=== PATIENT | female | born 1960 | race Caucasian/White ===

== ENCOUNTER → 2016-11-21 | Outpatient (CLI) | payer BC ==
--- NOTE | 2016-11-21 10:53 | REPMRS ---
Patient History The patient states she had a clinical breast exam in 10/2016. Patient is postmenopausal. Family history of breast cancer in mother at age 50 or over, ovarian cancer in maternal aunt at age 50 or over, and breast cancer in maternal grandmother at age 50 or over. Benign excisional biopsy of the left breast, 1997. Digital Woman Screen Mammo: November 21, 2016 - Exam #: [id number] Bilateral CC and MLO view(s) were taken. Technologist: Yoly Mario, Technologist Prior study comparison: November 19, 2015, digital woman screen mammo performed at [facility]. October 11, 2014, digital woman screen mammo performed at [facility]. August 12, 2013, digital woman screen mammo performed at [facility]. FINDINGS: There are scattered fibroglandular densities. There has been no change in the appearance of the mammogram from the prior studies. There is a mild amount of scattered fibroglandular density which is fairly symmetric. There is no interval development of dominant mass, architectural distortion, or clustered microcalcification suggestive of malignancy. ASSESSMENT: BI-RADS/ACR category 1 mammogram. Negative. Recommendation Routine screening mammogram in 1 year (for women over age 40). This mammogram was interpreted with the aid of an FDA-approved computer-aided dectection system. Electronically Signed By: Jorje Robledo MD 11/21/16 1171
== END ==
LOC: M WHC 09:55
PROVIDERS: ATTEND Nurse Practitioner Family
DX: Z12.31 Encounter for screening mammogram for malignant neoplasm of breast (principal); Z80.3 Family history of malignant neoplasm of breast; Z80.41 Family history of malignant neoplasm of ovary

== ENCOUNTER → 2017-01-22 | Outpatient (CLI) | payer BC ==
[2017-01-22 19:32] LABS: ALBUMIN 3.8 GM/DL (3.2-5.2); ALBUMIN/GLOBULIN RATIO 1.27 (1.00-1.93); ALKALINE PHOSPHATASE 82 U/L (45-117); ALT/SGPT 47 U/L (12-78); ANION GAP 1 MEQ/L (8-16); AST/SGOT 28 U/L (15-37); BILIRUBIN,TOTAL 0.4 MG/DL (0.2-1.0); BLOOD UREA NITROGEN 14 MG/DL (7-18); CALCIUM LEVEL 8.9 MG/DL (8.5-10.1); CARBON DIOXIDE LEVEL 34 MEQ/L (21-32); CHLORIDE LEVEL 107 MEQ/L (98-107); CHOLESTEROL LEVEL 233 MG/DL (<200); CREATININE FOR GFR 0.89 MG/DL (0.55-1.02); GLOMERULAR FILTRATION RATE > 60.0 (>51); GLUCOSE, FASTING 89 MG/DL (70-105); POTASSIUM SERUM 4.5 MEQ/L (3.5-5.1); SODIUM LEVEL 142 MEQ/L (136-145); TOTAL PROTEIN 6.8 GM/DL (6.4-8.2); TRIGLYCERIDES LEVEL 162 MG/DL (<150)
== END ==
LOC: M WUC 11:13
PROVIDERS: ATTEND Nurse Practitioner Family
DX: E78.2 Mixed hyperlipidemia (principal); E03.9 Hypothyroidism, unspecified; E55.9 Vitamin D deficiency, unspecified

== ENCOUNTER → 2017-07-08 | Outpatient (REF) | payer BC ==
[2017-07-08 19:25] LABS: FREE T4 0.9 NG/DL (0.76-1.46)
== END ==
LOC: M SFHCCLAY 10:24
PROVIDERS: ATTEND Nurse Practitioner Family
DX: E03.9 Hypothyroidism, unspecified (principal)

== ENCOUNTER → 2017-07-16 | Outpatient (REF) | payer BC ==
[2017-07-16 15:15] LABS: ALBUMIN 3.4 GM/DL (3.2-5.2); ALKALINE PHOSPHATASE 72 U/L (45-117); ALT/SGPT 43 U/L (12-78); ANION GAP 7 MEQ/L (8-16); AST/SGOT 28 U/L (15-37); BILIRUBIN,TOTAL 0.4 MG/DL (0.2-1.0); BLOOD UREA NITROGEN 17 MG/DL (7-18); CALCIUM LEVEL 9.1 MG/DL (8.5-10.1); CARBON DIOXIDE LEVEL 31 MEQ/L (21-32); CHLORIDE LEVEL 108 MEQ/L (98-107); CREATININE FOR GFR 0.73 MG/DL (0.55-1.02); GLOMERULAR FILTRATION RATE > 60.0 (>51); GLUCOSE, FASTING 79 MG/DL (70-105); POTASSIUM SERUM 4.6 MEQ/L (3.5-5.1); SODIUM LEVEL 146 MEQ/L (136-145); TOTAL PROTEIN 6.5 GM/DL (6.4-8.2)
[2017-07-16 15:21] LABS: FOLATE > 24.0 NG/ML; VITAMIN B12 LEVEL 441 PG/ML
[2017-07-16 16:44] LABS: BASO % 0.4 % (0.0-1.0); EOS # 0.3 K/mm3 (0.0-0.50); EOS % 4.7 % (0.0-3.0); LARGE UNSTAINED CELL # 0.2 K/mm3 (0.0-0.4); LARGE UNSTAINED CELL % 2.6 % (0.0-4.0); LYMPH # 2.1 K/mm3 (1.5-4.5); LYMPH % 35.7 % (24.0-44.0); MEAN CORPUSCULAR HEMOGLOBIN 31.5 pg (27.0-33.0); MEAN CORPUSCULAR HGB CONC 33.7 g/dl (32.0-36.5); MEAN CORPUSCULAR VOLUME 93.6 fl (80.0-96.0); MONO # 0.3 K/mm3 (0.0-0.8); MONO % 5.8 % (0.0-5.0); NEUTROPHILS % 50.7 % (36.0-66.0); PLATELET COUNT, AUTOMATED 247 k/mm3 (150-450); RED CELL DISTRIBUTION WIDTH 12.6 % (11.5-14.5); WHITE BLOOD COUNT 5.9 K/mm3 (4.0-10.0)
== END ==
LOC: M SFHCPLAZ 11:38
PROVIDERS: ATTEND Nurse Practitioner Family
DX: R41.3 Other amnesia (principal)

== ENCOUNTER → 2017-07-31 | Outpatient (REF) | payer BC ==
[2017-07-31 14:04] LABS: BASO # 0.1 10^3/uL (0.0-0.2); BASO % 0.7 % (0.0-1.0); EOS # 0.3 10^3/uL (0.0-0.50); EOS % 4.4 % (0.0-3.0); IMMATURE GRANULOCYTE % 0.1 % (0-0); LYMPH # 2.7 10^3/uL (1.5-4.5); MEAN CORPUSCULAR HEMOGLOBIN 31.4 pg (27.0-33.0); MEAN CORPUSCULAR HGB CONC 33.3 g/dl (32.0-36.5); MEAN CORPUSCULAR VOLUME 94.3 fl (80.0-96.0); MONO # 0.5 10^3/uL (0.0-0.8); MONO % 7.8 % (0.0-5.0); NEUTROPHILS # 3.3 10^3/uL (1.8-7.7); PLATELET COUNT, AUTOMATED 249 10^3/uL (150-450); RED CELL DISTRIBUTION WIDTH 12.8 % (11.5-14.5); WHITE BLOOD COUNT 6.9 10^3/uL (4.0-10.0)
[2017-07-31 14:26] LABS: VITAMIN B12 LEVEL 758 PG/ML (247-911)
[2017-07-31 14:27] LABS: FOLATE > 24.0 NG/ML (>5.4)
[2017-07-31 14:43] LABS: ALBUMIN 3.7 GM/DL (3.2-5.2); ALBUMIN/GLOBULIN RATIO 1.23 (1.00-1.93); ALKALINE PHOSPHATASE 73 U/L (45-117); ALT/SGPT 48 U/L (12-78); ANION GAP 8 MEQ/L (8-16); AST/SGOT 30 U/L (15-37); BILIRUBIN,TOTAL 0.4 MG/DL (0.2-1.0); BLOOD UREA NITROGEN 17 MG/DL (7-18); CALCIUM LEVEL 8.2 MG/DL (8.5-10.1); CARBON DIOXIDE LEVEL 28 MEQ/L (21-32); CHLORIDE LEVEL 106 MEQ/L (98-107); CREATININE FOR GFR 0.75 MG/DL (0.55-1.02); FERRITIN 27 NG/ML (8-252); GLOMERULAR FILTRATION RATE > 60.0 (>51); GLUCOSE, FASTING 102 MG/DL (70-105); POTASSIUM SERUM 4.1 MEQ/L (3.5-5.1); SODIUM LEVEL 142 MEQ/L (136-145); TOTAL PROTEIN 6.7 GM/DL (6.4-8.2)
[2017-07-31 14:47] LABS: ERYTHROCYTE SEDIMENTATION RATE 13 mm/hr (0-30)
[2017-08-03 10:51] LABS: ALBUMIN 4.09 GM/DL (3.29-5.55); GAMMA GLOBULIN % 13.8 % (11.1-18.8)
[2017-08-05 08:09] LABS: Lyme Disease IgG/IgM Antibodie <0.91 ISR (0.00-0.90); Lyme Disease IgM Ab Quantitati <0.80 index (0.00-0.79); SJOGREN'S ANTI SS-A <0.2 AI (0.0-0.9); SJOGREN'S ANTI SS-B <0.2 AI (0.0-0.9); VITAMIN E LEVEL 23.8 mg/L (5.3-16.8)
== END ==
LOC: M LABNEURO 10:31
PROVIDERS: ATTEND Psychiatry & Neurology Neurology
DX: G37.9 Demyelinating disease of central nervous system, unspecified (principal)

== ENCOUNTER → 2017-10-06 | Outpatient (REF) | payer BC ==
[2017-10-08 14:17] LABS: SJOGREN'S ANTI SS-A <0.2 AI (0.0-0.9); SJOGREN'S ANTI SS-B <0.2 AI (0.0-0.9)
== END ==
LOC: M LABNEURO 17:41
PROVIDERS: ATTEND Psychiatry & Neurology Neurology
DX: R76.9 Abnormal immunological finding in serum, unspecified (principal)

== ENCOUNTER → 2018-02-16 | Outpatient (REF) | payer BC ==
[2018-02-16 18:13] LABS: TOTAL 25(OH) VITAMIN D 52.7 NG/ML (30.0-100.0)
[2018-02-16 18:14] LABS: ALBUMIN 3.7 GM/DL (3.2-5.2); ALBUMIN/GLOBULIN RATIO 1.09 (1.00-1.93); ALKALINE PHOSPHATASE 76 U/L (45-117); ALT/SGPT 49 U/L (12-78); ANION GAP 4 MEQ/L (8-16); AST/SGOT 39 U/L (7-37); BILIRUBIN,TOTAL 0.3 MG/DL (0.2-1.0); BLOOD UREA NITROGEN 15 MG/DL (7-18); CALCIUM LEVEL 8.4 MG/DL (8.5-10.1); CARBON DIOXIDE LEVEL 31 MEQ/L (21-32); CHLORIDE LEVEL 105 MEQ/L (98-107); CHOLESTEROL LEVEL 221 MG/DL (<200); CHOLESTEROL RISK RATIO 4.702 (<5); CREATININE FOR GFR 0.82 MG/DL (0.55-1.30); FREE T4 0.98 NG/DL (0.76-1.46); GLOMERULAR FILTRATION RATE > 60.0 (>51); GLUCOSE, FASTING 94 MG/DL (70-100); HDL CHOLESTEROL 47 MG/DL (>40); NON-HDL-C 174 MG/DL; POTASSIUM SERUM 4.2 MEQ/L (3.5-5.1); SODIUM LEVEL 140 MEQ/L (136-145); TOTAL PROTEIN 7.1 GM/DL (6.4-8.2); TRIGLYCERIDES LEVEL 165 MG/DL (<150)
== END ==
LOC: M SFHCCLAY 11:17
DX: E78.2 Mixed hyperlipidemia (principal); E03.9 Hypothyroidism, unspecified; E55.9 Vitamin D deficiency, unspecified
CPT/HCPCS: 84443

== ENCOUNTER → 2018-03-02 | Outpatient (CLI) | payer BC | LOC: M WHC 11:32 | DX: Z12.31 Encounter for screening mammogram for malignant neoplasm of breast (principal); R92.1 Mammographic calcification found on diagnostic imaging of breast | CPT/HCPCS: 77067 ==

== ENCOUNTER → 2018-03-10 | Outpatient (CLI) | payer BC | LOC: M RAD 09:14 | DX: R92.8 Other abnormal and inconclusive findings on diagnostic imaging of breast (principal) | CPT/HCPCS: 77065 ==

== ENCOUNTER → 2018-08-31 | Outpatient (REF) | payer BC ==
[2018-08-31 17:34] LABS: FREE T4 1.01 NG/DL (0.76-1.46)
== END ==
LOC: M SFHCCLAY 10:04
DX: E03.9 Hypothyroidism, unspecified (principal)
CPT/HCPCS: 84443

== ENCOUNTER → 2018-09-01 | Outpatient (CLI) | payer BC | LOC: M SLEEP 19:44 | DX: G47.33 Obstructive sleep apnea (adult) (pediatric) (principal); G47.61 Periodic limb movement disorder | CPT/HCPCS: 95811 ==

== ENCOUNTER → 2019-02-16 | Outpatient (REF) | payer BC ==
[2019-02-16 11:34] LABS: ALBUMIN 3.4 GM/DL (3.2-5.2); ALT/SGPT 63 U/L (12-78); BILIRUBIN,TOTAL 0.4 MG/DL (0.2-1.0); BLOOD UREA NITROGEN 21 MG/DL (7-18); CALCIUM LEVEL 8.4 MG/DL (8.5-10.1); CARBON DIOXIDE LEVEL 31 MEQ/L (21-32); CHLORIDE LEVEL 108 MEQ/L (98-107); CHOLESTEROL LEVEL 218 MG/DL (<200); CHOLESTEROL RISK RATIO 4.192 (<5); CREATININE FOR GFR 0.85 MG/DL (0.55-1.30); FREE T4 0.98 NG/DL (0.76-1.46); GLOMERULAR FILTRATION RATE > 60.0 (>51); GLUCOSE, FASTING 90 MG/DL (70-100); HDL CHOLESTEROL 52 MG/DL (>40); LDL CHOLESTEROL 139 MG/DL (<100); NON-HDL-C 166 MG/DL; POTASSIUM SERUM 4.2 MEQ/L (3.5-5.1); SODIUM LEVEL 144 MEQ/L (136-145); TOTAL 25(OH) VITAMIN D 63.1 NG/ML (30.0-100.0); TOTAL PROTEIN 6.6 GM/DL (6.4-8.2); TRIGLYCERIDES LEVEL 135 MG/DL (<150)
== END ==
LOC: M SFHCCLAY 08:12
PROVIDERS: ATTEND Nurse Practitioner Family
DX: E78.2 Mixed hyperlipidemia (principal); E03.9 Hypothyroidism, unspecified; E55.9 Vitamin D deficiency, unspecified

== ENCOUNTER → 2019-03-04 | Outpatient (REF) | payer BC ==
[2019-03-09 14:10] LABS: HPV HYBRID CAPTURE II Positive (Negative)
== END ==
LOC: M SFHCWAGY 09:51
PROVIDERS: ATTEND Nurse Practitioner Family
DX: Z12.4 Encounter for screening for malignant neoplasm of cervix (principal); N88.8 Other specified noninflammatory disorders of cervix uteri
CPT/HCPCS: 87624; G0123

== ENCOUNTER → 2019-03-04 | Outpatient (CLI) | payer BC ==
--- NOTE | 2019-03-04 11:42 | REPMRS ---
Patient History The patient states she had a clinical breast exam in 02/2019. Family history of breast cancer at age 50 or over in mother, breast cancer at age 50 or over in maternal grandmother, ovarian cancer at age 50 or over in maternal aunt. Benign stereotactic core biopsy of the right breast, March 25, 2018. Benign excisional biopsy of the left breast, 1997. 3D TOMOSYNTHESIS WAS PERFORMED. Digital Woman Screen Mammo: March 04, 2019 - Exam #: [id number] Bilateral CC and MLO view(s) were taken. Technologist: Romy Macedo, Technologist Prior study comparison: March 10, 2018, right breast digital mammo diagnostic unilateral, performed at [facility]. March 02, 2018, digital woman screen mammo performed at [facility]. FINDINGS: There are scattered fibroglandular densities. There has been no change in the appearance of the mammogram from the prior studies. There is a mild amount of residual fibroglandular tissue which is fairly symmetric. There is no interval development of dominant mass, architectural distortion, or clustered microcalcification suggestive of malignancy. Assessment: BI-RADS/ACR category 1 mammogram. Negative Mammogram. Recommendation Routine screening mammogram in 1 year (for women over age 40). This mammogram was interpreted with the aid of an FDA-approved computer-aided dectection system. THE LIFETIME RISK OF BREAST CANCER IS 20%, THEREFORE SUPPLEMENTAL SCREENING MRI OF THE BREASTS IS RECOMMENDED IN 6 MONTHS. Electronically Signed By: Eugenio Quinonez MD 03/04/19 6422
== END ==
LOC: M WHC 09:13
PROVIDERS: ATTEND Nurse Practitioner Family
DX: Z12.31 Encounter for screening mammogram for malignant neoplasm of breast (principal); Z85.3 Personal history of malignant neoplasm of breast; Z86.018 Personal history of other benign neoplasm

== ENCOUNTER → 2019-06-17 | Outpatient (CLI) | payer BC ==
--- NOTE | 2019-06-17 19:07 | REP ---
Left knee MRI: There are no comparison studies. The studies performed with proton density and T2 data sets in sagittal, axial and coronal projections. There is a small joint effusion. There is a Franks's cyst. 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 There is a large complex tear involving the entire posterior horn of the medial meniscus. There is a cyst in the posterior portion of the intercondylar notch which could be a synovial cyst or a para meniscal cyst arising from the medial meniscus posterior horn signal There is medial collateral ligament para ligamentous T2 signal compatible with ligament sprain. The lateral collateral ligament is unremarkable. The the quadriceps and patellar tendons are unremarkable. The The anterior posterior cruciate ligaments are unremarkable. Impression: Large complex tear and knee posterior horn of the medial meniscus. Adjacent to this is a cyst in the posterior intercondylar notch which could be a synovial cyst or para meniscal cyst. Small joint effusion. 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 Medial collateral ligament sprain. Electronically Signed by Eugenio Moreira MD 06/17/2019 06:59 P
== END ==
LOC: M RAD 17:13
PROVIDERS: ATTEND Family Medicine
DX: M25.562 Pain in left knee (principal); M23.222 Derangement of posterior horn of medial meniscus due to old tear or injury, left knee

== ENCOUNTER → 2019-07-11 | Outpatient (REF) | payer BC | LOC: M LAB REF 20:00 | PROVIDERS: ATTEND Physician Assistant | DX: N39.0 Urinary tract infection, site not specified (principal) ==

== ENCOUNTER → 2019-08-11 | Outpatient (REF) | payer BC ==
[2019-08-11 12:05] LABS: HEMATOCRIT 40.6 % (36.0-47.0); HEMOGLOBIN 13.2 g/dl (12.0-15.5); MEAN CORPUSCULAR HEMOGLOBIN 31.1 pg (27.0-33.0); MEAN CORPUSCULAR HGB CONC 32.5 g/dl (32.0-36.5); MEAN CORPUSCULAR VOLUME 95.8 fl (80.0-96.0); PLATELET COUNT, AUTOMATED 294 10^3/uL (150-450); RED BLOOD COUNT 4.24 10^6/uL (4.00-5.40)
[2019-08-11 13:00] LABS: ALBUMIN 3.6 GM/DL (3.2-5.2); ALT/SGPT 38 U/L (12-78); BILIRUBIN,TOTAL 0.3 MG/DL (0.2-1.0); BLOOD UREA NITROGEN 11 MG/DL (7-18); CALCIUM LEVEL 9.1 MG/DL (8.5-10.1); CARBON DIOXIDE LEVEL 32 MEQ/L (21-32); CHLORIDE LEVEL 105 MEQ/L (98-107); CREATININE FOR GFR 0.86 MG/DL (0.55-1.30); GLOMERULAR FILTRATION RATE > 60.0 (>51); GLUCOSE, FASTING 93 MG/DL (70-100); POTASSIUM SERUM 4.7 MEQ/L (3.5-5.1); SODIUM LEVEL 140 MEQ/L (136-145); TOTAL 25(OH) VITAMIN D 63.4 NG/ML (30.0-100.0); TOTAL PROTEIN 6.8 GM/DL (6.4-8.2)
== END ==
LOC: M SFHCCLAY 08:26
PROVIDERS: ATTEND Nurse Practitioner Family
DX: G25.81 Restless legs syndrome (principal); E03.9 Hypothyroidism, unspecified; E55.9 Vitamin D deficiency, unspecified

== ENCOUNTER → 2019-09-09 | Outpatient (CLI) | payer BC ==
[~2019-09-09] MED LIST: PROHANCE 279.3MG/ML 15ML VIAL (A9576) As Ordered ONE
--- NOTE | 2019-09-09 16:56 | REP ---
Bilateral breast MRI study without and with IV gadolinium: History: High risk screening study. Kamila family history breast carcinoma. Comparison mammography March 04, 2019. Technique: Three Kasey MRI imaging was performed with a dedicated breast coil. Axial, coronal, and sagittal T1 and T2-weighted scans were obtained with and without fat saturation in the usual fashion. The study includes dynamically acquired post gadolinium enhanced imaging subtraction imaging. Maximal intensity projection and multiplanar re-formation imaging is included as well. The study was interpreted with the aid of ItsMyURLsD, an FDA approved computer-aided detection (CAD) software program, on a dedicated breast MRI work station. The gadolinium enhancement dose is 15 ml of intravenous ProHance. Findings: Magnetic field susceptibility artifact is seen in the right breast from the stereotactic marker clip placement the previous biopsy. There is no evidence of axillary lymphadenopathy. There are some scattered lymph nodes in the mediastinum, right paratracheal and aortopulmonary window region. The largest of these is in the right paratracheal region where there is a 17 x 16 mm marianna structure. This may merit further evaluation with chest CT scanning. High-resolution pre and postcontrast T1 and T2-weighted scans show no suspicious morphologic abnormality in either breast. There is a moderate fibroglandular breast parenchymal pattern. There is a mild pattern of background parenchymal enhancement. Dynamically acquired sequential post contrast images no suspicious foci of enhancement and/or washout in either breast to suggest malignancy. Subtraction images show no additional abnormality. Impression: BIRADS category one negative findings. Repeat screening breast MRI study recommended 1 year. Incidental note is made of scattered somewhat prominent paratracheal and AP window region mediastinal lymph nodes. Recommend chest CT study, preferably with intravenous contrast. Electronically Signed by Murray Robledo MD 09/09/2019 06:43 P
== END ==
LOC: M RAD 12:20
PROVIDERS: ATTEND Nurse Practitioner Family
DX: Z91.89 Other specified personal risk factors, not elsewhere classified (principal); Z80.3 Family history of malignant neoplasm of breast; R59.0 Localized enlarged lymph nodes
CPT/HCPCS: A9576; C8908

== ENCOUNTER → 2019-09-26 | Outpatient (CLI) | payer BC ==
[~2019-09-26] MED LIST changes: +ISOVUE-370 76% 100ML VIAL (Q9967) As Ordered ONE; -PROHANCE 279.3MG/ML 15ML VIAL (A9576) As Ordered ONE
--- NOTE | 2019-09-26 09:14 | REP ---
Clinical: Follow up lymphadenopathy. Technique: Axial contrast enhanced images from the thoracic inlet to the upper abdomen using 75 ml Isovue 370 intravenous contrast material with coronal and sagittal re-formations. Findings: The bilateral lung solis are well-aerated and clear. No consolidation, effusion, or pneumothorax. No significant nodule or mass lesion. Tracheobronchial tree is patent. No significant axillary, hilar, or mediastinal adenopathy is appreciated. Pretracheal and precarinal lymph nodes measure up to approximately 8 mm short axis diameter and are nonspecific. Thoracic aorta is normal. Heart and pericardium appear normal. Surrounding musculoskeletal structures are intact. Limited upper abdomen demonstrates normal bilateral adrenal glands. Impression: Normal contrast enhanced chest CT. Electronically Signed by Anthony Wells MD 09/26/2019 09:05 A
== END ==
LOC: M RAD 08:25
PROVIDERS: ATTEND Nurse Practitioner Family
DX: R59.0 Localized enlarged lymph nodes (principal)
CPT/HCPCS: 71260; Q9967

== ENCOUNTER → 2019-10-13 | Outpatient (REF) | payer BC | LOC: M SFHCPLAZ 16:48 | PROVIDERS: ATTEND Physician Assistant Medical | DX: J02.9 Acute pharyngitis, unspecified (principal) ==

== ENCOUNTER → 2020-03-17 | Outpatient (CLI) | payer BC ==
[2020-03-17 17:49] LABS: FREE T4 1.08 NG/DL (0.76-1.46); MAGNESIUM LEVEL 2.1 MG/DL (1.8-2.4); THYROID STIMULATING HORMONE 0.939 uIU/ML (0.358-3.740)
[2020-03-20 10:17] LABS: TOTAL 25(OH) VITAMIN D 80.5 NG/ML (30.0-100.0)
[2020-03-20 10:18] LABS: FOLATE > 24.0 NG/ML; VITAMIN B12 LEVEL 993 PG/ML
== END ==
LOC: M WUC 10:09
PROVIDERS: ATTEND Nurse Practitioner Family
DX: E03.9 Hypothyroidism, unspecified (principal); E55.9 Vitamin D deficiency, unspecified; K21.9 Gastro-esophageal reflux disease without esophagitis

== ENCOUNTER → 2020-06-21 | Outpatient (CLI) | payer OTHER ==
--- NOTE | 2020-06-21 12:02 | REPMRS ---
Patient History The patient states she has not had a clinical breast exam in over a year. Family history of breast cancer at age 50 or over in mother, breast cancer at age 50 or over in maternal grandmother, ovarian cancer at age 50 or over in maternal aunt. Benign stereotactic core biopsy of the right breast, March 25, 2018. Benign excisional biopsy of the left breast, 1997. Digital Woman Screen Mammo: June 21, 2020 - Exam #: [id number] Bilateral CC and MLO view(s) were taken. Technologist: Bisi Schneider, Technologist Prior study comparison: March 04, 2019, bilateral digital woman screen mammo performed at [facility]. March 02, 2018, digital woman screen mammo performed at [facility]. November 21, 2016, digital woman screen mammo performed at [facility]. FINDINGS: There are scattered fibroglandular densities. The Volpara volumetric breast density category is:B. There is a needle biopsy marker clip in the right breast. There is mild contour deformity left breast from previous excision. There is a 7 mm well circumscribed nodule in the left breast on the CC view which merits further evaluation. There has been no other change in the appearance of the mammogram from the prior studies. There is a mild amount of scattered fibroglandular density which is fairly symmetric. There is no other interval development of dominant mass, architectural distortion, or grouped microcalcification suggestive of malignancy. 3-D tomosynthesis shows no additional findings. Assessment: BI-RADS/ACR category 0 mammogram, Incomplete: Need additional imaging evaluation and/or prior mammograms for comparison. Recommendation Ultrasound and special view mammogram of the left breast. This patient's Lifetime Breast Cancer Risk is estimated at 18.8 %. This mammogram was interpreted with the aid of an FDA-approved computer-aided dectection system. Electronically Signed By: Jorje Robledo MD 06/21/20 1437
== END ==
LOC: M WHC 08:28
PROVIDERS: ATTEND Nurse Practitioner Family
DX: Z12.31 Encounter for screening mammogram for malignant neoplasm of breast (principal)

== ENCOUNTER → 2020-06-29 | Outpatient (CLI) | payer OTHER ==
--- NOTE | 2020-07-24 13:22 | REP ---
DIAGNOSTIC MAMMOGRAM LEFT BREAST AND LEFT BREAST ULTRASOUND Spot compression views of the left breast performed in multiple projections to evaluate a nodule in the outer left breast. There is persistence of a smoothly marginated nodule in the lower outer left breast at about the 4 o'clock position approximately 5-6 cm from the nipple. Real-time sonographic evaluation of the left breast is performed in the lower outer aspect. Two simple cysts are visualized. There is a cyst 7 mm in diameter 5 cm from the nipple corresponding to the mammographic abnormality. Closer to the nipple, there is a 3 mm cyst also identified. The findings are benign. IMPRESSION: ACR 2 benign nodule in the lower outer left breast corresponds to a simple cyst, which is benign. A smaller simple cyst is seen closer to the nipple. There are no suspicious findings. Recommend follow-up mammogram in one year. Patient letter 1. PAULD
== END ==
LOC: M WHC 07:48
PROVIDERS: ATTEND Nurse Practitioner Women's Health
DX: N63.23 Unspecified lump in the left breast, lower outer quadrant (principal)

== ENCOUNTER → 2020-08-02 | Outpatient (CLI) | payer OTHER ==
[2020-08-02 13:24] LABS: ALBUMIN 3.5 GM/DL (3.2-5.2); ALT/SGPT 39 U/L (12-78); BILIRUBIN,TOTAL 0.3 MG/DL (0.2-1.0); BLOOD UREA NITROGEN 15 MG/DL (7-18); CARBON DIOXIDE LEVEL 33 MEQ/L (21-32); CHLORIDE LEVEL 106 MEQ/L (98-107); CHOLESTEROL LEVEL 236 MG/DL (<200); CHOLESTEROL RISK RATIO 4.816 (<5); FREE T4 1.04 NG/DL (0.76-1.46); GLOMERULAR FILTRATION RATE > 60.0 (>45); GLUCOSE, FASTING 75 MG/DL (70-100); HDL CHOLESTEROL 49 MG/DL (>40); LDL CHOLESTEROL 143 MG/DL (<100); NON-HDL-C 187 MG/DL; POTASSIUM SERUM 4.4 MEQ/L (3.5-5.1); SODIUM LEVEL 142 MEQ/L (136-145); TOTAL PROTEIN 6.8 GM/DL (6.4-8.2); TRIGLYCERIDES LEVEL 218 MG/DL (<150)
[2020-08-02 14:04] LABS: TOTAL 25(OH) VITAMIN D 49.8 NG/ML (30.0-100.0)
== END ==
LOC: M WUC 09:54
PROVIDERS: ATTEND Nurse Practitioner Family
DX: E03.9 Hypothyroidism, unspecified (principal); E78.2 Mixed hyperlipidemia; E55.9 Vitamin D deficiency, unspecified

== ENCOUNTER → 2020-08-31 | Outpatient (REF) | payer OTHER | LOC: M SFHCWAGY 13:22 | PROVIDERS: ATTEND Nurse Practitioner Family | DX: Z12.4 Encounter for screening for malignant neoplasm of cervix (principal) | CPT/HCPCS: 87624; G0123 ==

== ENCOUNTER → 2020-10-11 | Outpatient (REF) | payer OTHER | LOC: M SFHCWAGY 17:16 | PROVIDERS: ATTEND Obstetrics & Gynecology | DX: R87.612 Low grade squamous intraepithelial lesion on cytologic smear of cervix (LGSIL) (principal) ==

== ENCOUNTER → 2021-04-04 | Outpatient (CLI) | payer OTHER ==
[2021-04-04 17:19] LABS: ALBUMIN 3.6 GM/DL (3.2-5.2); ALT/SGPT 43 U/L (12-78); BILIRUBIN,TOTAL 0.4 MG/DL (0.2-1.0); BLOOD UREA NITROGEN 15 MG/DL (7-18); CALCIUM LEVEL 8.8 MG/DL (8.8-10.2); CARBON DIOXIDE LEVEL 29 MEQ/L (21-32); CHLORIDE LEVEL 105 MEQ/L (98-107); CHOLESTEROL LEVEL 244 MG/DL (<200); CREATININE FOR GFR 0.76 MG/DL (0.55-1.30); GLOMERULAR FILTRATION RATE > 60.0 (>45); GLUCOSE, FASTING 88 MG/DL (70-100); HDL CHOLESTEROL 57 MG/DL (>40); LDL CHOLESTEROL 149 MG/DL (<100); NON-HDL-C 187 MG/DL; POTASSIUM SERUM 4.2 MEQ/L (3.5-5.1); SODIUM LEVEL 140 MEQ/L (136-145); TOTAL 25(OH) VITAMIN D 51.2 NG/ML (30.0-100.0); TRIGLYCERIDES LEVEL 188 MG/DL (<150)
== END ==
LOC: M WUC 11:25
PROVIDERS: ATTEND Nurse Practitioner Family
DX: E03.9 Hypothyroidism, unspecified (principal); E78.2 Mixed hyperlipidemia; E55.9 Vitamin D deficiency, unspecified

== ENCOUNTER → 2021-09-24 | Outpatient (REF) | payer OTHER | LOC: M SFHCWAGY 17:47 | PROVIDERS: ATTEND Nurse Practitioner Women's Health | DX: Z12.4 Encounter for screening for malignant neoplasm of cervix (principal); R87.610 Atypical squamous cells of undetermined significance on cytologic smear of cervix (ASC-US); Z86.19 Personal history of other infectious and parasitic diseases | CPT/HCPCS: 87624; G0123 ==

== ENCOUNTER → 2021-09-24 | Outpatient (CLI) | payer OTHER | LOC: M WHC 14:26 | PROVIDERS: ATTEND Nurse Practitioner Women's Health | DX: Z12.31 Encounter for screening mammogram for malignant neoplasm of breast (principal); R92.1 Mammographic calcification found on diagnostic imaging of breast; R92.8 Other abnormal and inconclusive findings on diagnostic imaging of breast ==

== ENCOUNTER → 2021-10-09 | Outpatient (REF) | payer OTHER ==
[2021-10-10 12:19] LABS: FREE T4 0.99 NG/DL (0.76-1.46); THYROID STIMULATING HORMONE 2.19 uIU/ML (0.358-3.740); TOTAL 25(OH) VITAMIN D 46.4 NG/ML (30.0-100.0)
== END ==
LOC: M SFHCCLAY 14:44
PROVIDERS: ATTEND Nurse Practitioner Family
DX: E03.9 Hypothyroidism, unspecified (principal); E55.9 Vitamin D deficiency, unspecified

== ENCOUNTER → 2022-02-19 | Outpatient (CLI) | payer OTHER, BC ==
[~2022-02-19] MED LIST changes: +EUTH50TA PO; +GABA-282 PO; -ISOVUE-370 76% 100ML VIAL (Q9967) As Ordered ONE; +OMEP-173 PO
== END ==
LOC: M LABSMTC 10:07
PROVIDERS: ATTEND Anesthesiology
DX: Z01.812 Encounter for preprocedural laboratory examination (principal); Z20.822 Contact with and (suspected) exposure to COVID-19

== ENCOUNTER 2022-02-24 08:02 | Day surgery (SDC) | payer BC, OTHER ==
[~2022-02-24] VITALS: Ht 160 cm; Wt 81.6 kg
[~2022-02-24 08:02] MED LIST changes: +NS 1,000 ML IV ONE
[2022-02-24] MEDS ORDERED: VITMTA PO (08:39)
[2022-02-24] MEDS ORDERED: CALC500T52 PO (08:39)
[2022-02-24] MEDS ORDERED: VITA100093 PO (08:39)
[2022-02-24] MEDS ORDERED: LIDOCAINE 2% 100MG/5ML SDV (FOR ANES.) As Ordered ONE (09:15)
[2022-02-24] MEDS ORDERED: propofoL 200 MG/20 ML VIAL As Ordered ONE (09:15)
[2022-02-24 10:19] VITALS: BP 126/68
== END 2022-02-24 10:21 | disposition home or self-care (01) ==
LOC: M OPP 08:02
PROVIDERS: ATTEND Internal Medicine Gastroenterology
DX: Z12.11 Encounter for screening for malignant neoplasm of colon (principal); Z79.899 Other long term (current) drug therapy; Z80.1 Family history of malignant neoplasm of trachea, bronchus and lung; Z80.3 Family history of malignant neoplasm of breast

== ENCOUNTER → 2022-04-02 | Outpatient (CLI) | payer OTHER ==
[~2022-04-02] MED LIST changes: +CALC500T52 PO; -NS 1,000 ML IV ONE; +VITA100093 PO; +VITMTA PO
[2022-04-02 15:48] LABS: ALBUMIN 3.7 GM/DL (3.2-5.2); ALT/SGPT 47 U/L (12-78); BILIRUBIN,TOTAL 0.3 MG/DL (0.2-1.0); BLOOD UREA NITROGEN 17 MG/DL (7-18); CALCIUM LEVEL 9.4 MG/DL (8.8-10.2); CARBON DIOXIDE LEVEL 32 MEQ/L (21-32); CHLORIDE LEVEL 107 MEQ/L (98-107); CHOLESTEROL LEVEL 249 MG/DL (<200); CREATININE FOR GFR 0.85 MG/DL (0.55-1.30); GLOMERULAR FILTRATION RATE > 60.0 (>45); GLUCOSE, FASTING 88 MG/DL (70-100); HDL CHOLESTEROL 59 MG/DL (>40); LDL CHOLESTEROL 163 MG/DL (<100); NON-HDL-C 190 MG/DL; POTASSIUM SERUM 4.7 MEQ/L (3.5-5.1); SODIUM LEVEL 143 MEQ/L (136-145); TRIGLYCERIDES LEVEL 135 MG/DL (<150)
[2022-04-02 15:52] LABS: BASO % 0.6 % (0.0-1.0); EOS # 0.5 10^3/uL (0.0-0.5); EOS % 6.6 % (0.0-3.0); HEMATOCRIT 42.2 % (36.0-47.0); HEMOGLOBIN 13.9 g/dl (12.0-15.5); HEMOGLOBIN A1c 5.4 %; LYMPH # 2.2 10^3/uL (1.5-5.0); LYMPH % 31.9 % (24.0-44.0); MEAN CORPUSCULAR HEMOGLOBIN 31.4 pg (27.0-33.0); MEAN CORPUSCULAR HGB CONC 32.9 g/dl (32.0-36.5); MEAN CORPUSCULAR VOLUME 95.3 fl (80.0-96.0); MONO # 0.6 10^3/uL (0.0-0.8); MONO % 8.3 % (2.0-8.0); NEUTROPHILS # 3.7 10^3/uL (1.5-8.5); NEUTROPHILS % 52.3 % (36.0-66.0); PLATELET COUNT, AUTOMATED 261 10^3/uL (150-450); RED BLOOD COUNT 4.43 10^6/uL (4.00-5.40); TOTAL 25(OH) VITAMIN D 43.6 NG/ML (30.0-100.0)
== END ==
LOC: M PLALAB 12:09
PROVIDERS: ATTEND Nurse Practitioner Family
DX: E03.9 Hypothyroidism, unspecified (principal); E78.2 Mixed hyperlipidemia; E55.9 Vitamin D deficiency, unspecified

== ENCOUNTER → 2022-04-21 | Outpatient (CLI) | payer OTHER | LOC: M WUC 10:19 | PROVIDERS: ATTEND Nurse Practitioner Family | DX: M25.512 Pain in left shoulder (principal) ==

== ENCOUNTER → 2022-09-26 | Outpatient (CLI) | payer OTHER ==
[2022-09-26 13:59] LABS: BASO # 0.1 10^3/uL (0.0-0.2); BASO % 0.8 % (0.0-1.0); EOS # 0.3 10^3/uL (0.0-0.5); EOS % 5.1 % (0.0-3.0); HEMATOCRIT 43.1 % (36.0-47.0); HEMOGLOBIN 13.6 g/dl (12.0-15.5); LYMPH # 2.6 10^3/uL (1.5-5.0); LYMPH % 41.4 % (24.0-44.0); MEAN CORPUSCULAR HEMOGLOBIN 31.1 pg (27.0-33.0); MEAN CORPUSCULAR HGB CONC 31.6 g/dl (32.0-36.5); MEAN CORPUSCULAR VOLUME 98.6 fl (80.0-96.0); MONO # 0.5 10^3/uL (0.0-0.8); MONO % 7.7 % (2.0-8.0); NEUTROPHILS # 2.8 10^3/uL (1.5-8.5); NEUTROPHILS % 44.8 % (36.0-66.0); PLATELET COUNT, AUTOMATED 272 10^3/uL (150-450); RED BLOOD COUNT 4.37 10^6/uL (4.00-5.40); WHITE BLOOD COUNT 6.3 10^3/uL (4.0-10.0)
[2022-09-26 14:35] LABS: ALBUMIN 3.8 G/DL (3.2-5.2); ALKALINE PHOSPHATASE 78 U/L (46-116); ALT/SGPT 39 U/L (7.0-40); AST/SGOT 32 U/L (<34); BILIRUBIN,TOTAL 0.4 MG/DL (0.3-1.2); BLOOD UREA NITROGEN 14 MG/DL (9-23); CALCIUM LEVEL 9.2 MG/DL (8.3-10.6); CARBON DIOXIDE LEVEL 32 MMOL/L (20-31); CHLORIDE LEVEL 105 MMOL/L (98-107); CHOLESTEROL LEVEL 152 MG/DL (<200); CHOLESTEROL RISK RATIO 2.87 (<5); CREATININE FOR GFR 0.78 MG/DL (0.55-1.30); GLOMERULAR FILTRATION RATE > 60.0 (>45); GLUCOSE, FASTING 100 MG/DL (74-106); HDL CHOLESTEROL 52.8 MG/DL (>40); LDL CHOLESTEROL 77.2 MG/DL (<100); NON-HDL-C 99 MG/DL; POTASSIUM SERUM 4.3 MMOL/L (3.5-5.1); SODIUM LEVEL 143 MMOL/L (136-145); TOTAL PROTEIN 6.7 G/DL (5.7-8.2); TRIGLYCERIDES LEVEL 110 MG/DL (<150)
[2022-09-26 14:39] LABS: FREE T4 1.07 NG/DL (0.89-1.76); THYROID STIMULATING HORMONE 1.434 uIU/ML (0.55-4.78); TOTAL 25(OH) VITAMIN D 47.4 NG/ML (20.0-100.0)
== END ==
LOC: M WUC 09:17
PROVIDERS: ATTEND Nurse Practitioner Family
DX: E03.9 Hypothyroidism, unspecified (principal); E55.9 Vitamin D deficiency, unspecified; E78.2 Mixed hyperlipidemia

== ENCOUNTER → 2023-01-14 | Outpatient (CLI) | payer OTHER | LOC: M WHC 10:18 | PROVIDERS: ATTEND Nurse Practitioner Family | DX: Z12.31 Encounter for screening mammogram for malignant neoplasm of breast (principal) ==

== ENCOUNTER → 2023-01-14 | Outpatient (REF) | payer OTHER | LOC: M SFHCWAGY 15:10 | PROVIDERS: ATTEND Nurse Practitioner Family | DX: Z12.4 Encounter for screening for malignant neoplasm of cervix (principal); R87.610 Atypical squamous cells of undetermined significance on cytologic smear of cervix (ASC-US) | CPT/HCPCS: 87624; G0123 ==

== ENCOUNTER → 2023-08-17 | Outpatient (REF) | payer OTHER ==
[2023-08-17 12:44] LABS: BASO # 0.1 10^3/uL (0.0-0.2); BASO % 0.7 % (0.0-1.0); EOS # 0.4 10^3/uL (0.0-0.5); EOS % 5.7 % (0.0-3.0); HEMATOCRIT 41.9 % (36.0-47.0); HEMOGLOBIN 13.2 g/dl (12.0-15.5); LYMPH # 2.5 10^3/uL (1.5-5.0); LYMPH % 34.8 % (24.0-44.0); MEAN CORPUSCULAR HEMOGLOBIN 30.3 pg (27.0-33.0); MEAN CORPUSCULAR HGB CONC 31.5 g/dl (32.0-36.5); MEAN CORPUSCULAR VOLUME 96.1 fl (80.0-96.0); MONO # 0.6 10^3/uL (0.0-0.8); MONO % 8.4 % (2.0-8.0); NEUTROPHILS # 3.6 10^3/uL (1.5-8.5); NEUTROPHILS % 50.3 % (36.0-66.0); PLATELET COUNT, AUTOMATED 279 10^3/uL (150-450); RED BLOOD COUNT 4.36 10^6/uL (4.00-5.40); WHITE BLOOD COUNT 7.2 10^3/uL (4.0-10.0)
[2023-08-18 05:02] LABS: ALBUMIN 3.7 G/DL (3.2-5.2); ALKALINE PHOSPHATASE 80 U/L (46-116); ALT/SGPT 25 U/L (7.0-40); AST/SGOT 20 U/L (<34); BILIRUBIN,TOTAL 0.3 MG/DL (0.3-1.2); BLOOD UREA NITROGEN 19 MG/DL (9-23); CALCIUM LEVEL 9.5 MG/DL (8.3-10.6); CARBON DIOXIDE LEVEL 32 MMOL/L (20-31); CHLORIDE LEVEL 104 MMOL/L (98-107); CHOLESTEROL LEVEL 165 MG/DL (<200); CHOLESTEROL RISK RATIO 2.89 (<5); CREATININE FOR GFR 0.83 MG/DL (0.55-1.30); FREE T4 1.01 NG/DL (0.89-1.76); GLOMERULAR FILTRATION RATE > 60.0 (>45); GLUCOSE, FASTING 105 MG/DL (74-106); HDL CHOLESTEROL 56.9 MG/DL (>40); LDL CHOLESTEROL 84.7 MG/DL (<100); NON-HDL-C 108.1 MG/DL; POTASSIUM SERUM 5.3 MMOL/L (3.5-5.1); SODIUM LEVEL 140 MMOL/L (136-145); THYROID STIMULATING HORMONE 2.368 uIU/ML (0.55-4.78); TOTAL 25(OH) VITAMIN D 60.3 NG/ML (20.0-100.0); TOTAL PROTEIN 6.6 G/DL (5.7-8.2); TRIGLYCERIDES LEVEL 117 MG/DL (<150)
== END ==
LOC: M SFHCCLAY 08:12
PROVIDERS: ATTEND Nurse Practitioner Family
DX: E03.9 Hypothyroidism, unspecified (principal); E55.9 Vitamin D deficiency, unspecified; E78.2 Mixed hyperlipidemia

== ENCOUNTER → 2024-01-14 | Outpatient (REF) | payer OTHER ==
[2024-01-14 12:02] LABS: BASO # 0.1 10^3/uL (0.0-0.2); BASO % 0.7 % (0.0-1.0); EOS # 0.4 10^3/uL (0.0-0.5); EOS % 5.1 % (0.0-3.0); HEMATOCRIT 41.6 % (36.0-47.0); HEMOGLOBIN 13.5 g/dl (12.0-15.5); LYMPH # 2.3 10^3/uL (1.5-5.0); LYMPH % 31.8 % (24.0-44.0); MEAN CORPUSCULAR HEMOGLOBIN 30.5 pg (27.0-33.0); MEAN CORPUSCULAR HGB CONC 32.5 g/dl (32.0-36.5); MEAN CORPUSCULAR VOLUME 94.1 fl (80.0-96.0); MONO # 0.5 10^3/uL (0.0-0.8); MONO % 7.2 % (2.0-8.0); NEUTROPHILS % 54.9 % (36.0-66.0); PLATELET COUNT, AUTOMATED 261 10^3/uL (150-450); RED BLOOD COUNT 4.42 10^6/uL (4.00-5.40); WHITE BLOOD COUNT 7.2 10^3/uL (4.0-10.0)
[2024-01-14 12:28] LABS: ALBUMIN 3.7 G/DL (3.2-5.2); ALKALINE PHOSPHATASE 73 U/L (46-116); ALT/SGPT 25 U/L (7.0-40); AST/SGOT 20 U/L (<34); BILIRUBIN,TOTAL 0.4 MG/DL (0.3-1.2); BLOOD UREA NITROGEN 17 MG/DL (9-23); CALCIUM LEVEL 9.3 MG/DL (8.3-10.6); CARBON DIOXIDE LEVEL 32 MMOL/L (20-31); CHLORIDE LEVEL 104 MMOL/L (98-107); CHOLESTEROL LEVEL 145 MG/DL (<200); CHOLESTEROL RISK RATIO 3.25 (<5); CREATININE FOR GFR 0.88 MG/DL (0.55-1.30); GLOMERULAR FILTRATION RATE > 60.0 (>45); GLUCOSE, FASTING 117 MG/DL (74-106); HDL CHOLESTEROL 44.6 MG/DL (>40); LDL CHOLESTEROL 70.2 MG/DL (<100); NON-HDL-C 100.4 MG/DL; POTASSIUM SERUM 4.3 MMOL/L (3.5-5.1); SODIUM LEVEL 141 MMOL/L (136-145); TOTAL PROTEIN 6.5 G/DL (5.7-8.2); TRIGLYCERIDES LEVEL 151 MG/DL (<150)
[2024-01-14 12:31] LABS: THYROID STIMULATING HORMONE 1.723 uIU/ML (0.55-4.78)
[2024-01-14 12:32] LABS: TOTAL 25(OH) VITAMIN D 57.8 NG/ML (20.0-100.0)
[2024-01-14 12:33] LABS: FREE T4 1.19 NG/DL (0.89-1.76)
== END ==
LOC: M SFHCCLAY 08:43
PROVIDERS: ATTEND Nurse Practitioner Family
DX: E03.9 Hypothyroidism, unspecified (principal); E55.9 Vitamin D deficiency, unspecified; E78.2 Mixed hyperlipidemia

== ENCOUNTER → 2024-01-27 | Outpatient (CLI) | payer OTHER | LOC: M WHC 09:48 | PROVIDERS: ATTEND Nurse Practitioner Family | DX: Z12.31 Encounter for screening mammogram for malignant neoplasm of breast (principal) ==

== ENCOUNTER → 2024-01-27 | Outpatient (REF) | payer OTHER | LOC: M SFHCWAGY 15:02 | PROVIDERS: ATTEND Nurse Practitioner Family | DX: Z01.419 Encounter for gynecological examination (general) (routine) without abnormal findings (principal); Z77.9 Other contact with and (suspected) exposures hazardous to health | CPT/HCPCS: 87624; G0123 ==

== ENCOUNTER → 2024-07-28 | Outpatient (CLI) | payer OTHER ==
[~2024-07-28] MED LIST changes: +GABA-1172 PO; -GABA-282 PO
[2024-07-28 13:52] LABS: BASO % 0.7 % (0.0-1.0); EOS # 0.3 10^3/uL (0.0-0.5); EOS % 4.2 % (0.0-3.0); HEMATOCRIT 43.1 % (36.0-47.0); HEMOGLOBIN 13.7 g/dl (12.0-15.5); LYMPH % 32.7 % (24.0-44.0); MEAN CORPUSCULAR HEMOGLOBIN 30.7 pg (27.0-33.0); MEAN CORPUSCULAR HGB CONC 31.8 g/dl (32.0-36.5); MEAN CORPUSCULAR VOLUME 96.6 fl (80.0-96.0); MONO # 0.5 10^3/uL (0.0-0.8); NEUTROPHILS # 3.3 10^3/uL (1.5-8.5); NEUTROPHILS % 54.1 % (36.0-66.0); PLATELET COUNT, AUTOMATED 263 10^3/uL (150-450); RED BLOOD COUNT 4.46 10^6/uL (4.00-5.40)
[2024-07-28 14:11] LABS: HEMOGLOBIN A1c 5.2 % (4.0-6.0)
[2024-07-28 14:14] LABS: THYROID STIMULATING HORMONE 1.896 uIU/ML (0.55-4.78)
[2024-07-28 14:15] LABS: FREE T4 1.21 NG/DL (0.89-1.76)
[2024-07-28 14:17] LABS: ALBUMIN 3.7 G/DL (3.2-5.2); ALKALINE PHOSPHATASE 83 U/L (46-116); ALT/SGPT 29 U/L (7.0-40); AST/SGOT 23 U/L (<34); BILIRUBIN,TOTAL 0.4 MG/DL (0.3-1.2); BLOOD UREA NITROGEN 14 MG/DL (9-23); CALCIUM LEVEL 9.7 MG/DL (8.3-10.6); CARBON DIOXIDE LEVEL 32 MMOL/L (20-31); CHLORIDE LEVEL 108 MMOL/L (98-107); CHOLESTEROL LEVEL 179 MG/DL (<200); CHOLESTEROL RISK RATIO 3.19 (<5); CREATININE FOR GFR 0.84 MG/DL (0.55-1.30); GLOMERULAR FILTRATION RATE > 60.0 (>45); GLUCOSE, FASTING 105 MG/DL (74-106); HDL CHOLESTEROL 56.1 MG/DL (>40); LDL CHOLESTEROL 98.3 MG/DL (<100); NON-HDL-C 122.9 MG/DL; POTASSIUM SERUM 4.2 MMOL/L (3.5-5.1); SODIUM LEVEL 142 MMOL/L (136-145); TOTAL PROTEIN 6.9 G/DL (5.7-8.2); TRIGLYCERIDES LEVEL 123 MG/DL (<150)
== END ==
LOC: M WUC 09:28
PROVIDERS: ATTEND Nurse Practitioner Family
DX: R73.01 Impaired fasting glucose (principal); E78.2 Mixed hyperlipidemia; E55.9 Vitamin D deficiency, unspecified; E03.9 Hypothyroidism, unspecified

== ENCOUNTER → 2025-01-27 | Outpatient (CLI) | payer OTHER ==
[2025-01-27 12:47] LABS: BASO % 0.5 % (0.0-1.0); EOS # 0.2 10^3/uL (0.0-0.5); EOS % 4.2 % (0.0-3.0); HEMATOCRIT 39.2 % (36.0-47.0); HEMOGLOBIN 12.8 g/dl (12.0-15.5); LYMPH % 34.5 % (24.0-44.0); MEAN CORPUSCULAR HEMOGLOBIN 31.4 pg (27.0-33.0); MEAN CORPUSCULAR HGB CONC 32.7 g/dl (32.0-36.5); MEAN CORPUSCULAR VOLUME 96.1 fl (80.0-96.0); MONO # 0.5 10^3/uL (0.0-0.8); MONO % 8.8 % (2.0-8.0); NEUTROPHILS # 2.9 10^3/uL (1.5-8.5); NEUTROPHILS % 51.8 % (36.0-66.0); PLATELET COUNT, AUTOMATED 243 10^3/uL (150-450); RED BLOOD COUNT 4.08 10^6/uL (4.00-5.40); WHITE BLOOD COUNT 5.7 10^3/uL (4.0-10.0)
[2025-01-27 12:53] LABS: HEMOGLOBIN A1c 5.4 % (4.0-6.0)
[2025-01-27 13:25] LABS: ALBUMIN 3.6 G/DL (3.2-5.2); ALKALINE PHOSPHATASE 73 U/L (35-104); ALT/SGPT 23 U/L (7.0-40); AST/SGOT 17 U/L (<34); BILIRUBIN,TOTAL 0.5 MG/DL (0.3-1.2); BLOOD UREA NITROGEN 18 MG/DL (9-23); CALCIUM LEVEL 8.7 MG/DL (8.3-10.6); CARBON DIOXIDE LEVEL 30 MMOL/L (20-31); CHLORIDE LEVEL 106 MMOL/L (98-107); CHOLESTEROL LEVEL 155 MG/DL (<200); CHOLESTEROL RISK RATIO 2.95 (<5); CREATININE FOR GFR 0.81 MG/DL (0.55-1.30); FREE T4 1.24 NG/DL (0.89-1.76); GLOMERULAR FILTRATION RATE > 60.0 (>45); GLUCOSE, FASTING 97 MG/DL (74-106); HDL CHOLESTEROL 52.4 MG/DL (>40); LDL CHOLESTEROL 82.8 MG/DL (<100); NON-HDL-C 102.6 MG/DL; POTASSIUM SERUM 4.4 MMOL/L (3.5-5.1); SODIUM LEVEL 142 MMOL/L (136-145); TOTAL PROTEIN 6.6 G/DL (5.7-8.2); TRIGLYCERIDES LEVEL 99 MG/DL (<150)
== END ==
LOC: M WUC 09:28
PROVIDERS: ATTEND Nurse Practitioner Family
DX: E55.9 Vitamin D deficiency, unspecified (principal); R73.01 Impaired fasting glucose; E03.9 Hypothyroidism, unspecified; E78.2 Mixed hyperlipidemia

== ENCOUNTER → 2025-07-28 | Outpatient (REF) | payer OTHER ==
[2025-07-28 14:23] LABS: BASO # 0.1 10^3/uL (0.0-0.2); BASO % 0.8 % (0.0-1.0); EOS # 0.4 10^3/uL (0.0-0.5); EOS % 5.8 % (0.0-3.0); LYMPH # 2.0 10^3/uL (1.5-5.0); LYMPH % 31.8 % (24.0-44.0); MONO # 0.5 10^3/uL (0.0-0.8); MONO % 7.5 % (2.0-8.0); NEUTROPHILS # 3.4 10^3/uL (1.5-8.5); NEUTROPHILS % 53.9 % (36.0-66.0); PLATELET COUNT, AUTOMATED 264 10^3/uL (150-450)
[2025-07-28 14:30] LABS: CHOLESTEROL LEVEL 166.0 MG/DL (<200); CHOLESTEROL RISK RATIO 3.4 (<5); LDL CHOLESTEROL 81.8 MG/DL (<100); NON-HDL-C 117.2 MG/DL; TRIGLYCERIDES LEVEL 177.0 MG/DL (<150)
[2025-07-28 14:32] LABS: FREE T4 1.2 NG/DL (0.89-1.76)
[2025-07-28 14:47] LABS: ESTIMATED AVERAGE GLUCOSE 111.0 MG/DL (60-110)
== END ==
LOC: M SFHCPLAZ 07:05
PROVIDERS: ATTEND Nurse Practitioner Family
DX: E55.9 Vitamin D deficiency, unspecified (principal); R73.01 Impaired fasting glucose; E03.9 Hypothyroidism, unspecified; E78.2 Mixed hyperlipidemia

== ENCOUNTER → 2025-08-30 | Outpatient (CLI) | payer OTHER ==
[2025-08-30 18:08] LABS: BASO # 0.0 10^3/uL (0.0-0.2); BASO % 0.4 % (0.0-1.0); EOS # 0.3 10^3/uL (0.0-0.5); EOS % 3.7 % (0.0-3.0); LYMPH # 3.3 10^3/uL (1.5-5.0); LYMPH % 39.3 % (24.0-44.0); MONO # 0.6 10^3/uL (0.0-0.8); MONO % 6.8 % (2.0-8.0); NEUTROPHILS # 4.2 10^3/uL (1.5-8.5); NEUTROPHILS % 49.7 % (36.0-66.0); PLATELET COUNT, AUTOMATED 309 10^3/uL (150-450)
[2025-08-30 18:10] LABS: C REACTIVE PROTEIN QUANTITATIV < 0.50 MG/DL (<1.0)
[2025-08-30 18:11] LABS: ALT/SGPT 30 U/L (7.0-40); AST/SGOT 30 U/L (<34); CALCIUM LEVEL 9.0 MG/DL (8.3-10.6); CARBON DIOXIDE LEVEL 31 MMOL/L (20-31); CHLORIDE LEVEL 105 MMOL/L (98-107); CHOLESTEROL LEVEL 175 MG/DL (<200); CHOLESTEROL RISK RATIO 3.07 (<5); CREATININE FOR GFR 0.76 MG/DL (0.55-1.30); GLOMERULAR FILTRATION RATE 86.9 (>45); LDL CHOLESTEROL 91.7 MG/DL (<100); NON-HDL-C 118.1 MG/DL; POTASSIUM SERUM 4.3 MMOL/L (3.5-5.1); SODIUM LEVEL 143 MMOL/L (136-145); TRIGLYCERIDES LEVEL 132 MG/DL (<150)
[2025-08-30 18:13] LABS: FREE T4 1.21 NG/DL (0.89-1.76); TOTAL 25(OH) VITAMIN D 64.0 NG/ML (20.0-100.0)
[2025-08-30 18:33] LABS: ESTIMATED AVERAGE GLUCOSE 108.0 MG/DL (60-110)
== END ==
LOC: M PLALAB 15:36
PROVIDERS: ATTEND Physician Assistant Medical
DX: Z00.00 Encounter for general adult medical examination without abnormal findings (principal); R68.84 Jaw pain; R73.01 Impaired fasting glucose; E78.2 Mixed hyperlipidemia; E55.9 Vitamin D deficiency, unspecified; E03.9 Hypothyroidism, unspecified